=== PATIENT | male | born 1955 | race Caucasian/White ===

== ENCOUNTER 2017-02-22 00:47 | Emergency (ER) | payer MEDICAID, MEDICARE ==
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
[2017-02-22 01:01] VITALS: BP 125/73
== END 2017-02-22 02:52 | disposition home or self-care (01) ==
LOC: ED 00:47
DX: S80.212A Abrasion, left knee, initial encounter (principal); Y09 Assault by unspecified means; Y93.9 Activity, unspecified; Y92.9 Unspecified place or not applicable
CPT/HCPCS: 99282

== ENCOUNTER 2018-05-20 13:30 | Emergency (ER) | payer MEDICAID, MEDICARE ==
[2018-05-20 14:33] VITALS: BP 131/86
--- NOTE | 2018-05-20 19:26 | UC ---
Skin Complaint HPI - HPI Summary HPI Summary: 1. SKIN RASH ON BOTH ARMS , RIGHT FOOT X 3 WEEKS, CONCERN ABOUT FUNGAL INFECTION + ITCHY , NO DISCHARGE 2. SWELLING LEFT INGUINAL AREA, MILD TENDERNESS, NO N/V/D/C , NO DYSURIA HAS HAD THE SWELLING FOR ABUT A YEAR, MILD TENDERNESS, INCREASE IN SIZE WITH WALKING, OR COUGHING , 3. MILD CHEST DISCOMFORT , NO DIAPHORESIS , NO SOB , NO COUGH , HAS HAD THE PAIN OFF AND ON FOR FEW WEEKS + INDIGESTION , UPSET STOMACH, NOT BETTER OR WORSE WITH EXERTION - History of Current Complaint Chief Complaint: UCGeneralIllness Time Seen by Provider: 05/20/18 14:02 Stated Complaint: SKIN COMPLAINT Hx Obtained From: Patient Onset/Duration: Gradual Onset, Lasting Weeks - 3, Still Present Timing: Constant Onset Severity: Mild Current Severity: Mild Pain Intensity: 0 Pain Scale Used: 0-10 Numeric Location: Hand (Left), Foot (Left) Character: Pruritus, Redness Aggravating Factor(s): Nothing Alleviating Factor(s): Nothing Associated Signs & Symptoms: Positive: Rash. Negative: Nausea, Vomiting, Numbness, Thirst, Diaphoresis, Weakness, Pallor, Shivering, Fever, Chills, Cough , Wheezing, Chest Pain, Hoarseness, Throat Tightening - Allergy/Home Medications Allergies/Adverse Reactions: Allergies Allergy/AdvReac Type Severity Reaction Status Date / Time mold Allergy Unknown Verified 05/20/18 14:36 Reaction Details sulfamoxole Allergy Unknown Verified 05/20/18 14:34 Reaction Details trimethoprim Allergy Unknown Verified 05/20/18 14:34 Reaction Details dust Allergy Unknown Uncoded 05/20/18 14:36 Reaction Details Home Medications: Home Medications Cholecalciferol (Vitamin D3) [Vitamin D3] 4,000 unit PO DAILY 05/20/18 [History Confirmed 05/20/18] Cyanocobalamin (Vitamin B-12) [Vitamin B-12] 1 tab PO DAILY 05/20/18 [History Confirmed 05/20/18] Magnesium 1 tab PO DAILY 05/20/18 [History Confirmed 05/20/18] Multivitamin/Iron/Folic Acid [Centrum Adults Tablet] 1 tab PO DAILY 05/20/18 [ History Confirmed 05/20/18] Potassium 1 tab PO DAILY 05/20/18 [History Confirmed 05/20/18] Vitamin B Complex CAP* [B Complex CAP*] 1 tab PO DAILY 05/20/18 [History Confirmed 05/20/18] Review of Systems Constitutional: Negative Skin: Rash Eyes: Negative ENT: Negative Respiratory: Negative Cardiovascular: Chest Pain Gastrointestinal: Negative Genitourinary: Negative Is Patient Immunocompromised?: No All Other Systems Reviewed And Are Negative: Yes PMH/Surg Hx/FS Hx/Imm Hx - Additional Past Medical History Additional PMH: ESOPHAGEAL CANCER Respiratory History: Asthma Psychological History: Anxiety - Surgical History Surgical History: Yes Surgery Procedure, Year, and Place: partial esophagectomy - Family History Known Family History: Negative: Blood Disorder - Social History Alcohol Use: None Substance Use Type: None Smoking Status (MU): Never Smoked Tobacco Physical Exam Triage Information Reviewed: Yes Appearance: Well-Appearing, No Pain Distress, Well-Nourished Vital Signs: Initial Vital Signs Temp 97.6 F 05/20/18 14:02 Pulse 93 05/20/18 14:02 Resp 18 05/20/18 14:02 BP 131/86 05/20/18 14:02 Pulse Ox 97 05/20/18 14:02 Vital Signs Reviewed: Yes Eyes: Positive: Conjunctiva Clear ENT: Positive: Normal ENT inspection, Hearing grossly normal, Pharynx normal Neck: Positive: Supple, Nontender, No Lymphadenopathy Respiratory: Positive: Chest non-tender, Lungs clear, Normal breath sounds Cardiovascular: Positive: RRR, No Murmur, Pulses Normal Abdomen Description: Positive: Nontender, Soft, Hernia @ - LEFT INGUINAL HERNIA. Negative: CVA Tenderness (R), CVA Tenderness (L), Distended, Guarding Bowel Sounds: Positive: Present Musculoskeletal Exam: Normal Skin: Positive: rashes - MACULAR RASH, MILD ERYTHEMA, Diagnostics - EKG Cardiac Rate: NL Cardiac Rhythm: Sinus: Normal Ectopy: None ST Segment: Normal Course/Dx - Diagnoses Provider Diagnoses: 1. TINEA CORPORIS. 2. INGUINAL HERNIA. 3. ATYPICAL CHEST PAIN Discharge - Sign-Out/Discharge Documenting (check all that apply): Patient Departure All imaging exams completed and their final reports reviewed: No Studies - Discharge Plan Condition: Stable Disposition: HOME Prescriptions: Nystatin/Triamcinolone CR(NF) [Mycolog CREAM*] 1 applic TOPICAL BID #60 applic Patient Education Materials: Tinea Corporis (ED), Inguinal Hernia (ED) Referrals: Rip Lindo MD [Medical Doctor] - No Primary Care Phys,NOPCP [Primary Care Provider] - - Billing Disposition and Condition Condition: STABLE Disposition: Home
--- NOTE | 2018-05-22 15:55 | UC ---
- Progress Note Progress Note: call from pt - change Rx to Jesus from [facility] Discharge - Sign-Out/Discharge Documenting (check all that apply): Post-Discharge Follow Up All imaging exams completed and their final reports reviewed: No Studies - Discharge Plan Condition: Stable Disposition: HOME Prescriptions: Nystatin/Triamcinolone CR(NF) [Mycolog CREAM*] 1 applic TOPICAL BID #60 applic Patient Education Materials: Tinea Corporis (ED), Inguinal Hernia (ED) Referrals: Rip Lindo MD [Medical Doctor] - No Primary Care Phys,NOPCP [Primary Care Provider] - - Billing Disposition and Condition Condition: STABLE Disposition: Home
== END 2018-05-20 15:30 | disposition home or self-care (01) ==
LOC: UCEAST 13:30
DX: B35.4 Tinea corporis (principal); K40.90 Unilateral inguinal hernia, without obstruction or gangrene, not specified as recurrent; R07.89 Other chest pain; Z88.2 Allergy status to sulfonamides; Z88.3 Allergy status to other anti-infective agents
CPT/HCPCS: 93005; 99212; G0463

== ENCOUNTER 2018-08-05 07:35 | Day surgery (SDC) | payer MEDICARE, MEDICAID ==
--- NOTE | 2018-08-01 22:31 | HP ---
ADMISSION HISTORY AND PHYSICAL: DATE OF ADMISSION: 08/05/18 ATTENDING SURGEON: Dr. Rip Lindo.* (DICTATED BY RAVI ALEJANDRO) PRIMARY CARE PHYSICIAN: The patient does not have a primary care provider. CHIEF COMPLAINT: Left inguinal hernia. HISTORY OF PRESENT ILLNESS: This is a 63-year-old male who beginning in May or so noted the presence of left groin bulge that was uncomfortable. He states that this occurred after he was doing some heavy lifting. He continues to have some discomfort related to the hernia particularly with bending or more strenuous activities. He has not had anything to suggest incarceration or strangulation. He specifically denies any change in GI or function. He was seen in the office by Dr. Lindo on 06/06/18 at which time exam confirmed the presence of a reducible left inguinal hernia. No hernia was noted on the right. Dr. Lindo discussed with him the indications for surgery , the risks, benefits, and alternatives. The patient would like to proceed as scheduled with open repair of left inguinal hernia with mesh. PAST MEDICAL HISTORY: Depression and PTSD. 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 As a result, he has had chronic lower extremity edema, particularly on the left. He also has undergone prior varicose vein surgery and resection of laryngeal polyps. 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 PAST SURGICAL HISTORY: Surgeries as noted above. Also, hemorrhoidectomy in 2014. No reported surgical or anesthesia complications. CURRENT MEDICATIONS: None. DRUG ALLERGIES: SULFA (rash). FAMILY HISTORY: Mother may have had a history of phlebitis, though the patient is unsure. No other additional family history of VTE disease, anesthesia problems, or bleeding disorder. SOCIAL HISTORY: The patient lives alone. He is accompanied by his service dog. He denies use of tobacco. Stopped drinking for the most part in 2012 and denies any other recreational drug use. REVIEW OF SYSTEMS: General: No recent constitutional symptoms or acute illnesses other than described in the HPI. He is on day 30 of a solid food fast (he is drinking tea with electrolytes). He is not certain when he will end this fast and the reasons given are primarily political and socioeconomic. (The patient relates most of his medical problems to sociopolitical conditions and is otherwise a relatively poor historian). HEENT: No problems reported. Cardiovascular: No chest pain, palpitations, history of heart murmur. Respiratory: No recent shortness of breath or chronic cough. He notes that he took himself off anticoagulants that he was taking for his PE, but he has had no problems with recurrent disease. GI: No nausea, vomiting. No particular lower GI symptoms. Colonoscopy done approximately 5 years ago and normal by his report. : No problems reported. Endocrine: No diabetes or thyroid dysfunction. Neuro/Psych: He has history of depression and PTSD and has poor personal hygiene and again is somewhat untrusting of the system especially politically and sometimes medically. Remainder of review of systems is negative. PHYSICAL EXAMINATION GENERAL: Well-nourished, well-developed male, in no acute distress. VITAL SIGNS: Height 72 inches, weight 164 pounds, blood pressure 116/78, pulse 76, respirations 16. HEENT: Pupils equal and round, reactive. EOMs intact. No conjunctival pallor. Oropharynx: Teeth in fair repair. No acute problems. NECK: No lymphadenopathy, thyromegaly. No masses. There is a well-healed incision at the left side of the base of the neck from his prior esophagectomy. LUNGS: Clear to auscultation. No rales or wheezes noted. HEART: Regular rate and rhythm. No murmur appreciated. ABDOMEN: Well-healed laparoscopic incision sites. There is what feels like a suture granuloma in the subxiphoid area. There is no acute inflammation. The remainder of the abdomen is soft and nontender and without palpable masses or organomegaly with the exception of a left groin swelling, which is easily reducible and nontender and consistent with left inguinal hernia. No hernia palpable on the right. GENITALIA: Otherwise, not examined. RECTAL: Not done. BACK: No spinous process or CVA tenderness. EXTREMITIES: Lower extremities are notable for bilateral edema, which appears chronic, though I did not examine the skin itself. The patient states that changes are chronic and stable. NEUROLOGICAL: The patient is oriented, but does have some distorted thinking in terms of causation for some of his medical problems and it is difficult to keep on task for discussion regarding his upcoming surgery, but he does seem to understand the indications and implications of the surgery as well as instructions for perioperative care. SKIN: Warm and dry. No suspicious rashes or lesions noted, though I did not examine his lower extremities directly. IMPRESSION: Left inguinal hernia. PLAN: Open repair of left inguinal hernia with mesh. RAVI ALEJANDRO [id number]/[facility] #: [id number] KATRIN
[~2018-08-05 07:35] MED LIST: Buffered Lidocaine 0.9% SYRIN* 5 ML/SYR SYRINGE INTRADERM ONE; Dexamethasone IV* 4 MG/ML 1 ML (4 MG) IV SLOW PU ONE; Famotidine IV* 10 MG/ML 2 ML (20 mg) IV ONE
[2018-08-05] MEDS ORDERED: ceFAZolin 2 GM PREMIX in ORs 2 GM/50 ML BAG IVPB ONE (07:57)
[2018-08-05] MEDS ORDERED: Dexamethasone IV* 4 MG/ML 1 ML (4 MG) ONE (07:57)
[2018-08-05] MEDS ORDERED: Famotidine IV* 10 MG/ML 2 ML (20 mg) ONE (07:57)
[2018-08-05] MEDS ORDERED: Bupivacaine 0.5% W/EPI SDV* 30 ML VIAL ONE ×2 (08:57→11:16)
[2018-08-05] MEDS ORDERED: Lidocaine 1% INJ* 10 MG/ML 30 ML SDV ONE ×2 (08:57→11:16)
[2018-08-05 09:15] LABS: ABS Basophils 0 10^3/ul (0-0.2); ABS Eosinophils 0 10^3/ul (0-0.6); ABS Lymphocytes 1.2 10^3/ul (1.0-4.8); ABS Monocytes 0.4 10^3/ul (0-0.8); ABS Neutrophils 1.7 10^3/ul (1.5-7.7); ABS Nucleated RBC 0 10^3/ul; Eosinophil % 0.9 %; Hematocrit 38 % (42-52); Hemoglobin 13.2 g/dl (14.0-18.0); Lymphocyte % 36.2 %; Mean Corpuscular HGB Conc 35 g/dl (31-36); Mean Corpuscular Hemoglobin 32 pg (27-31); Mean Corpuscular Volume 91 fL (80-94); Mean Platelet Volume 9.6 fL (7.4-10.4); Nucleated Red Blood Cells % 0.1; Platelet Count 153 10^3/ul (150-450); Red Blood Count 4.17 10^6/ul (4.00-5.40); Red Cell Distribution Width 13 % (10.5-15); White Blood Count 3.3 10^3/ul (3.5-10.8)
[2018-08-05 09:21] LABS: EGFR Non-African American 100.5 (>60)
[2018-08-05] MEDS ORDERED: Remifentanil* 2 MG VIAL ONE (10:36)
[2018-08-05] MEDS ORDERED: fentaNYL* 50 MCG/ML 2 ML VIAL (100 MCG VIAL) ONE (11:00)
[2018-08-05] MEDS ORDERED: Midazolam* 1 MG/ML 2 ML VIAL (2 MG) ONE (11:00)
[2018-08-05] MEDS ORDERED: Acetaminop/Codeine 30 MG TAB* 1 TAB (300 MG/30 MG) PO PRN (12:35)
--- NOTE | 2018-08-05 12:39 | BRIEFOPN ---
Brief Operative Note - Surgery Procedures: PRE/POSTOP DX: LIH PROC: OPEN LIHR WITH MESH SURG: MECENAS ASSIST: ANES: LOCAL/MAC; [facility] EBL: MIN IVF: CRYSTALLOID SPEC: NONE DRAIN: NONE COMPL: NONE COND: STABLE; TO RR. FINDING: INDIRECT LIH
[2018-08-05] MEDS ORDERED: Naloxone* 0.4 MG/ML 1 ML VIAL IV PRN (12:43)
[2018-08-05] MEDS ORDERED: Propofol* 10 MG/ML 20 ML BTL ONE ×2 (13:05→13:57)
[2018-08-05 13:23] VITALS: BP 122/76
--- NOTE | 2018-08-08 07:57 | OP ---
DATE OF OPERATION: 08/05/18 - [facility] DATE OF : 55 SURGEON: Rip Lindo MD CORE DROPPER: RAVI Enamorado student. ANESTHESIOLOGIST: Dr. Morales. ANESTHESIA: Local MAC. PRE-OP DIAGNOSIS: Left inguinal hernia. POST-OP DIAGNOSIS: Left inguinal hernia. OPERATIVE PROCEDURE: Open repair of left inguinal hernia with mesh. ESTIMATED BLOOD LOSS: Minimal. IV FLUIDS: Crystalloid. SPECIMEN: None. DRAINS: None. COMPLICATIONS: None. COUNT: The instrument, needle, and sponge counts were correct. DESCRIPTION OF PROCEDURE: The patient was brought to the operating room and placed on the table supine. Sequential compression devices were placed on both lower extremities. Intravenous sedation was administered. His left groin was prepped and draped in the usual sterile fashion. He received appropriate intravenous antibiotics. Time-out was performed. Local anesthetic was infiltrated into the skin and soft tissue in the left groin as a field block. An oblique incision was created approximately 5 cm long. The subcutaneous tissues were divided with cautery and crossing veins were divided between clamps and ligated with absorbable ties. The external oblique aponeurosis was then identified. An additional anesthetic was infiltrated beneath this and then the aponeurosis was opened along the line of its fibers through the superficial ring. Inspection revealed the ilioinguinal nerve to be well visualized and this was mobilized and maintained medially to protect it. The contents of the inguinal canal were then isolated with a Grabill drain. The patient was noted to have an indirect inguinal hernia. The sac was elevated. Cord structures were dissected free and preserved. The sac was opened identifying a small sliding component of fat. The sac was pursestring closed and dissected back beyond the deep ring. The repair was then performed with the Medtronic ProGrip mesh for left- sided inguinal hernia. Mesh was positioned with overlap of the pubic tubercle and the mesh was minimally trimmed in the lateral aspect. The cord was positioned through the pre-cut defect and the hernia mesh was closed. The coverage was excellent. The ilioinguinal nerve was returned to the anatomic position and then the external oblique aponeurosis was run close with 2-0 Vicryl suture. 3-0 Vicryl was used to close Bradly's fascia in interrupted fashion. Skin was closed with 4-0 Monocryl in subcuticular fashion. Steri-Strips were applied. Dressing was applied. The patient tolerated the procedure well, was extubated uneventfully and he was transferred to the recovery room in stable condition. [id number]/[facility] #: [id number] KATRIN
== END 2018-08-05 13:28 | disposition home or self-care (01) ==
LOC: OR 07:35
PROVIDERS: ATTEND Surgery
DX: K40.90 Unilateral inguinal hernia, without obstruction or gangrene, not specified as recurrent (principal); F43.10 Post-traumatic stress disorder, unspecified; F32.9 Major depressive disorder, single episode, unspecified
CPT/HCPCS: 36415; 80053; 85025; J0690; J1100; J2250; J2704; J3010

== ENCOUNTER 2019-02-17 17:15 | Emergency (ER) | payer MEDICAID, MEDICARE ==
[2019-02-17 20:00] VITALS: BP 122/87
--- NOTE | 2019-02-17 20:02 | UC ---
UC General HPI - HPI Summary HPI Summary: Pt presents to urgent for evaluation of several concerns. PT has a complex medical history including esophageal cancer for which he had surgery, arthritis , leg edema and cardiac disease. Patient does not currently have a PCP. Patient here today because he states that his arthritis is getting worse. Patient also states he swelling in his legs have gotten worse but is concerned because the left is more swollen than the right. Patient does have a remote history of blood clots. Patient denies chest pain or shortness of breath. Patient denies headache or vision changes. No abdominal pain. No nausea vomiting. Patient states his living situation is slightly to stabilizing feels this is contributing to his overall health picture. Patient has a service are coming him at today's visit. Medications reviewed - History of Current Complaint Chief Complaint: UCGI Stated Complaint: HERNIA,ACID REFLUX,SOB,DEHYDRATED Time Seen by Provider: 02/17/19 18:34 Hx Obtained From: Patient, Medical Records Onset/Duration: Gradual Onset, Resolved Onset Severity: Mild Current Severity: Mild Pain Intensity: 2 - Allergy/Home Medications Allergies/Adverse Reactions: Allergies Allergy/AdvReac Type Severity Reaction Status Date / Time mold Allergy Unknown Verified 02/17/19 17:57 Reaction Details Sulfa (Sulfonamide Allergy Hives Verified 02/17/19 17:57 Antibiotics) trimethoprim Allergy Unknown Verified 02/17/19 17:57 Reaction Details dust Allergy Unknown Uncoded 02/17/19 17:57 Reaction Details Home Medications: Home Medications NK [No Home Medications Reported] 02/17/19 [History Confirmed 02/17/19] PMH/Surg Hx/FS Hx/Imm Hx Previously Healthy: Yes Cardiovascular History: Cardiac Disease, Hypertension GI/ History: Gastroesophageal Reflux, Other - hernia Cancer History: Other - esophageal - Surgical History Surgical History: Yes Surgery Procedure, Year, and Place: partial esophagectomy. varicose vein surgery x3. hemorrhoid removal 2015. inguinal hernia repair 2018 - Family History Known Family History: Negative: Blood Disorder - Social History Alcohol Use: Rare Substance Use Type: None Smoking Status (MU): Never Smoked Tobacco Review of Systems All Other Systems Reviewed And Are Negative: Yes Constitutional: Positive: Negative Skin: Positive: Negative Eyes: Positive: Negative ENT: Positive: Negative Respiratory: Positive: Negative Cardiovascular: Positive: Other - leg edema Gastrointestinal: Positive: Negative Genitourinary: Positive: Negative Motor: Positive: Other - arthalgia Neurological: Positive: Weakness, Paresthesia Physical Exam - Summary Physical Exam Summary: Vital Signs Reviewed: Yes A+Ox3, no distress, [place] full, easy sentences Eyes: Conjunctiva Clear, ANASTASIYA. EOM intact and full ENT: Hearing grossly normal TM x 2 clear, mmoist, uvula midline, no exudate, no erythema Neck: Positive: Supple Respiratory: Positive: No respiratory distress, No accessory muscle use + CTA throughout no w/r Cardiovascular: RRR nl s1, s2 no m/r CBT <2 sec + 1+ edema b/l LE left slight discomfort calf feet warm CBT < 2 seec abd soft + BS nt/nd no guarding, no distension Musculoskeletal Exam: YA x 4 without difficulty Strength Intact, ROM Intact Neurological: Positive: Alert, + sensation throughout Psychological: Positive: Normal Response To Family Skin: Positive: no rash, no ecchymosis, pt had a tick on left leg when took off pants for examination - tick fell off - no apparent retained part under magnification Triage Information Reviewed: Yes Vital Signs: Initial Vital Signs Temp 100.0 F 02/17/19 17:35 Pulse 81 02/17/19 17:35 Resp 18 02/17/19 17:35 BP 137/86 02/17/19 17:35 Pulse Ox 98 02/17/19 17:35 Diagnostics - Radiology No standard instances Radiology Interpretation Completed By: Radiologist - Patient Name: TIANNA BONNER Medical Record#: [id number] Ordering Physician: Betsy Castillo MD Acct.#: [id number] : 1955 Age: 64 Sex: M Location: [facility] Exam Date: 02/17/191914 ADM Status: REG ER Order Information: VL LOWER EXT VEINS LEFT Accession Number: [id number] CPT: 13571 EXAM: US Duplex Left Lower Extremity Veins , Limited EXAM DATE/TIME: 02/17/2019 7:52 PM CLINICAL HISTORY: 64 years old, male; Edema, localized; Lower extremity, left; Additional info: Lle edema , discomfort TECHNIQUE: Imaging protocol: Real-time Duplex ultrasound of the Left Lower Extremity with 2-D chow scale, color Doppler flow and spectral waveform analysis. Limited exam focused on the left lower extremity veins. COMPARISON: No relevant prior studies available. FINDINGS: Left deep veins : Unremarkable. The common femoral, femoral, proximal profunda femoral and popliteal veins are patent without thrombus. Normal Doppler waveforms. Normal compressibility and/or augmentation response. Left superficial veins: Unremarkable. Saphenofemoral junction is patent without thrombus. Soft tissues: Unremarkable. IMPRESSION: No acute findings. No evidence of deep vein thrombosis. To contact [facility] with a general question: [facility] - [phone] For direct physician to physician contact: Physician Hotline - [phone] [facility] ([facility] Facility ID #[id number]) <Electronically signed by Blaine Chaudhry MD in OV> 02/17/192014 Dictated By: Blaine Chaudhry MD Dictated Date /Time: 02/17/192014 Transcribed Date/Time: Copy to: This report is only to be considered final once signed by the Provider(s) as displayed in the "<Electronically Signed by >" field (s). Absence of a signature indicates the report is in a draft status and still needs to be finalized. In the event this document was created by someone other than the signing Provider, the individual initiating the document will be listed in the "Entered by:" or "Dictated by:" longoria. 1 of 2 Course/Dx - Course Course Of Treatment: Patient with complex medical history no PCP. Patient here because he states his arthritis is little worse, his legs are more swollen is got some tenderness in his left calf. Patient concerned about DVT. Patient also noted a tick on his left leg and fell off here urgent care. Vital signs are stable. On exam patient does have edema in his bilateral lower extremity. Patient with mild discomfort. Low suspicion for DVT the patient with history of similar symptoms we'll check an x-ray. Discussed with patient limitations urgent care. We'll draw a CBC and chemistry. Strongly recommend patient follow up with Physician referral center and the [facility]., Patient initially reluctant as he states he plans to [facility] but explained patient's complete medical history and is limitations urgent care. After discussion patient and agree with the plan. Patient given contact information for both the clinic as well as physician referral center. I also left a message for the physician referral center. We'll follow up with ultrasound and reassess. Patient comfortable in agreement with plan. I d/w pt regarding prophylaxis doxy for lyme given tick bite - tick was not engorged, pt states was not present - reviewed CDC recommendation - lang not prophylac today - Diagnoses Provider Diagnosis: Leg edema Discharge - Sign-Out/Discharge Documenting (check all that apply): Patient Departure All imaging exams completed and their final reports reviewed: Yes - Discharge Plan Condition: Stable Disposition: HOME Patient Education Materials: Leg Edema (ED), Musculoskeletal Pain (ED) Referrals: [facility] [Outside] [facility] [Outside] No Primary Care Phys,NOPCP [Primary Care Provider] - Additional Instructions: - You should expect a call tomorrow from the physician referral service, Venita Escalera. She will assist you in establishing with a primary care provider [facility] - Your blood work results will take 1-2 days to come back- the [facility] will be able to review the results - It is important that you position yourself for comfort - elevate your legs and sit slightly upright - it is important for your leg swelling and swallowing condition. This is important for consistency. It is also very important to stay well hydrated - If you have uncontrolled pain, shortness of breath, chest pain or any other concerns it is recommended you go directly to the emergency department for further treatment and evaluation - Billing Disposition and Condition Condition: STABLE Disposition: Home
[2019-02-18 11:16] LABS: ABS Basophils 0.1 10^3/ul (0-0.2); ABS Lymphocytes 2.2 10^3/ul (1.0-4.8); ABS Monocytes 0.5 10^3/ul (0-0.8); ABS Neutrophils 4.7 10^3/ul (1.5-7.7); Eosinophil % 0.4 %; Hematocrit 43 % (42-52); Hemoglobin 14.7 g/dL (14.0-18.0); Lymphocyte % 28.8 %; Mean Corpuscular HGB Conc 34 g/dL (31-36); Mean Corpuscular Hemoglobin 32 pg (27-31); Mean Corpuscular Volume 94 fL (80-94); Mean Platelet Volume 9.5 fL (7.4-10.4); Nucleated Red Blood Cells % 0.1; Platelet Count 230 10^3/uL (150-450); Red Blood Count 4.57 10^6 /uL (4.18-5.48); Red Cell Distribution Width 13 % (10-15); White Blood Count 7.5 10^3/uL (3.5-10.8)
[2019-02-18 11:45] LABS: Albumin 4.2 g/dL (3.2-5.2); Albumin/Globulin Ratio 1.6 (1-3); BUN/Creatinine Ratio 20.9 (8-20); Calcium 9.8 mg/dL (8.6-10.3); EGFR African American 108.3 (>60); EGFR Non-African American 89.5 (>60); Globulin 2.6 g/dL (2-4); Potassium 4.1 mmol/L (3.5-5.0); Total Bilirubin 0.7 mg/dL (0.2-1.0); Total Protein 6.8 g/dL (6.4-8.9)
== END 2019-02-17 20:41 | disposition home or self-care (01) ==
LOC: UCEAST 17:15
DX: R60.0 Localized edema (principal); Z85.01 Personal history of malignant neoplasm of esophagus; Z88.2 Allergy status to sulfonamides; Z88.8 Allergy status to other drugs, medicaments and biological substances
CPT/HCPCS: 36415; 80053; 81003; 85025; 99211; G0463

== ENCOUNTER 2019-03-17 11:44 | Emergency (ER) | payer MEDICARE, MEDICAID ==
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
[2019-03-17 13:32] LABS: ABS Basophils 0.1 10^3/ul (0-0.2); ABS Lymphocytes 1.5 10^3/ul (1.0-4.8); ABS Monocytes 0.5 10^3/ul (0-0.8); Eosinophil % 0.3 %; Hematocrit 46 % (42-52); Hemoglobin 15.8 g/dL (14.0-18.0); Lymphocyte % 25.1 %; Mean Corpuscular HGB Conc 34 g/dL (31-36); Mean Corpuscular Hemoglobin 32 pg (27-31); Mean Corpuscular Volume 94 fL (80-94); Mean Platelet Volume 8.5 fL (7.4-10.4); Nucleated Red Blood Cells % 0.1; Platelet Count 230 10^3/uL (150-450); Red Blood Count 4.86 10^6 /uL (4.18-5.48); Red Cell Distribution Width 13 % (10-15); White Blood Count 6.1 10^3/uL (3.5-10.8)
[2019-03-17 13:47] LABS: ALT 28 U/L (7-52); AST 22 U/L (13-39); Albumin 4.4 g/dL (3.2-5.2); Albumin/Globulin Ratio 1.4 (1-3); Alkaline Phosphatase 63 U/L (34-104); Anion Gap 8 mmol/L (2-11); BUN/Creatinine Ratio 38.2 (8-20); Blood Urea Nitrogen 34 mg/dL (6-24); CO2 Carbon Dioxide 30 mmol/L (22-32); Calcium 10.6 mg/dL (8.6-10.3); Chloride 104 mmol/L (101-111); EGFR African American 104.1 (>60); EGFR Non-African American 86.1 (>60); Globulin 3.1 g/dL (2-4); Glucose 95 mg/dL (70-100); Potassium 3.8 mmol/L (3.5-5.0); Sodium 142 mmol/L (135-145); Total Protein 7.5 g/dL (6.4-8.9)
[2019-03-17 14:04] LABS: Acetaminophen < 15 mcg/mL; Alcohol < 10 mg/dL (<10); Salicylate < 2.50 mg/dL (<30)
[2019-03-17 14:11] LABS: TSH (Thyroid Stimulating Horm) 1.72 mcIU/mL (0.34-5.60)
[2019-03-17 15:16] VITALS: BP 0/0
== END 2019-03-17 15:15 | disposition home or self-care (01) ==
LOC: ED 11:44
DX: S60.211A Contusion of right wrist, initial encounter (principal); F22 Delusional disorders; X58.XXXA Exposure to other specified factors, initial encounter; Y92.9 Unspecified place or not applicable; Z88.3 Allergy status to other anti-infective agents; Z88.2 Allergy status to sulfonamides; I73.9 Peripheral vascular disease, unspecified; F41.9 Anxiety disorder, unspecified; F43.10 Post-traumatic stress disorder, unspecified; F32.9 Major depressive disorder, single episode, unspecified; M19.031 Primary osteoarthritis, right wrist
CPT/HCPCS: 36415; 80053; 80320; 80329; 84443; 85025; 99284; G0480

== ENCOUNTER 2019-03-21 17:31 | Emergency (ER) | payer MEDICARE, MEDICAID ==
[2019-03-21 17:55] VITALS: BP 113/76
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
== END 2019-03-21 19:40 | disposition home health service (06) ==
LOC: UCEAST 17:31
DX: R22.42 Localized swelling, mass and lump, left lower limb (principal); Z59.0 Homelessness; Z86.711 Personal history of pulmonary embolism; Z85.01 Personal history of malignant neoplasm of esophagus; Z88.2 Allergy status to sulfonamides
CPT/HCPCS: 99202; G0463

== ENCOUNTER 2019-03-21 20:27 | Emergency (ER) | payer MEDICARE, MEDICAID ==
--- NOTE | 2019-03-21 22:24 | ED ---
Lower Extremity - HPI Summary HPI Summary: Patient is a 64 y/o M presenting to ED with complaints of LLE edema, erythema and pain as well as mid back pain since 12/2018. He claims that he has been put out of his house "illegally" and has been out on the street for the past four days. Patient states that LLE erythema, edema, and warmness have worsened recently. Patient was evaluated at [facility] and was advised to come to ED for further workup. He reports Hx of cellulitis at left leg, sepsis, DVT, PE. He does not take medications for these issues. On triage, pain is rated 8/10, nothing is noted to aggravate/alleviate Sx. Home medications and allergies are reviewed. - History of Current Complaint Chief Complaint: EDExtremityLower Stated Complaint: BLOOD CLOT LT LEG PER PT Time Seen by Provider: 03/21/19 22:06 Hx Obtained From: Patient Onset of Pain: Days - Sx worse over past few days, Prior to Arrival Onset/Duration: Still Present - Sx worse over past few days Severity Initially: Moderate Severity Currently: Severe Pain Intensity: 8 Pain Scale Used: 0-10 Numeric Timing: Constant, Lasting Days - Sx worse over past few days, Lasting Weeks - Sx present since 12/2018 Location: Is Discrete @ - LLE, mid back pain Associated Signs And Symptoms: Positive: Swelling - LLE, Redness - LLE, Other - mid back pain, LLE pain Aggravating Factor(s): Nothing Alleviating Factor(s): Nothing - Allergies/Home Medications Allergies/Adverse Reactions: Allergies Allergy/AdvReac Type Severity Reaction Status Date / Time mold Allergy Unknown Verified 03/21/19 20:37 Reaction Details Sulfa (Sulfonamide Allergy Hives Verified 03/21/19 20:37 Antibiotics) trimethoprim Allergy Unknown Verified 03/21/19 20:37 Reaction Details dust Allergy Unknown Uncoded 03/21/19 20:37 Reaction Details PMH/Surg Hx/FS Hx/Imm Hx Cardiovascular History: Reports: Hx Peripheral Vascular Disease - DVT- 04/2011, varicose veins in legs, Hx Rheumatic Fever - myahave as a child, not sure Denies: Other Cardiovascular Problems/Disorders Respiratory History: Reports: Hx Asthma - childhood, Hx Pulmonary Embolism - PE- 04/2011 Denies: Other Respiratory Problems/Disorders GI History: Reports: Hx Hiatal Hernia - history of, prior to surgery, Other GI Disorders - esophageal [id number]/2013 History: Denies: Other Problems/Disorders Musculoskeletal History: Reports: Other Musculoskeletal History - Left inguinal hernia Denies: Hx Arthritis Sensory History: Reports: Hx Contacts or Glasses - Bifocals Denies: Hx Hearing Aid Opthamlomology History: Reports: Hx Contacts or Glasses - Bifocals Neurological History: Denies: Other Neuro Impairments/Disorders Psychiatric History: Reports: Hx Anxiety - Post traumatic stress disorder, Hx Depression Denies: Hx of Violent Episodes Against Others - Cancer History Cancer Type, Location and Year: esphogeal Hx Chemotherapy: No - Surgical History Surgery Procedure, Year, and Place: partial esophagectomy. varicose vein surgery x3. hemorrhoid removal 2015. inguinal hernia repair 2018 Hx Anesthesia Reactions: No Infectious Disease History: No Infectious Disease History: Denies: Traveled Outside the [place] in Last 30 Days - Family History Known Family History: Negative: Blood Disorder - Social History Alcohol Use: None Substance Use Type: Reports: None Smoking Status (MU): Never Smoked Tobacco Review of Systems Musculoskeletal: Other - positive - LLE pain, mid back pain Positive: Edema - LLE Skin: Other - positive - LLE erythema All Other Systems Reviewed And Are Negative: Yes Physical Exam - Summary Physical Exam Summary: VITAL SIGNS: Reviewed. GENERAL: Patient is a well-developed and nourished male who is lying comfortable in the stretcher. Patient is not in any acute respiratory distress. HEAD AND FACE: No signs of trauma. No ecchymosis, hematomas or skull depressions. No sinus tenderness. EYES: PERRLA, EOMI x 2, No injected conjunctiva, no nystagmus. EARS: Hearing grossly intact. Ear canals and tympanic membranes are within normal limits. MOUTH: Oropharynx within normal limits. NECK: Supple, trachea is midline, no adenopathy, no JVD, no carotid bruit, no c- spine tenderness, neck with full ROM CHEST: Symmetric, no tenderness at palpation LUNGS: Clear to auscultation bilaterally. No wheezing or crackles. CVS: Regular rate and rhythm, S1 and S2 present, no murmurs or gallops appreciated. ABDOMEN: Soft, non-tender. No signs of distention. No rebound no guarding, and no masses palpated. Bowel sounds are normal. EXTREMITIES: FROM in all major joints, no cyanosis or clubbing. LLE edema. NEURO: Alert and oriented x 3. No acute neurological deficits. Speech is normal and follows commands. SKIN: Dry and warm Triage Information Reviewed: Yes Vital Signs On Initial Exam: Initial Vitals Temp Pulse Resp BP Pulse Ox 99.2 F 85 16 112/69 95 03/21/19 20:30 03/21/19 20:30 03/21/19 20:30 03/21/19 20:30 03/21/19 20:30 Vital Signs Reviewed: Yes Diagnostics - Vital Signs Vital Signs Temp Pulse Resp BP Pulse Ox 03/21/19 20:30 99.2 F 85 16 112/69 95 - Laboratory Lab Statement: Any lab studies that have been ordered have been reviewed, and results considered in the medical decision making process. - Ultrasound VENOUS DOPPLER STUDY OF RLE Ultrasound Interpretation Completed By: Radiologist Summary of Ultrasound Findings: VENOUS DOPPLER STUDY IMPRESSION: The study is POSITIVE for below-knee DVT involving one of the paired left. posterior tibial veins. No above knee thrombus. Recommend followup scan in 3-5. days to assess for proximal propagation above the knee. THIS REPORT WAS REVIEWED BY DR. CONTRERAS. Re-Evaluation - Re-Evaluation First Eval Re-Evaluation Time: 00:07 Comment: Results of US discussed with the patient. Patient will be discharged to home and follow up with PCP within three days. He was advised to get a repeated US in 1-2 weeks. Strict return precautions given. Patient agreeable with this plan. Lower Extremity Course/Dx - Course Course Of Treatment: Patient is a 64 y/o M presenting to ED with complaints of LLE edema, erythema and pain as well as mid back pain since 12/2018. Patient states that LLE erythema, edema, and warmness have worsened recently. Patient was evaluated at [facility] and was advised to come to ED for further workup. He reports Hx of cellulitis at left leg, sepsis, DVT, PE. He does not take medications for these issues. On physical exam, LLE edema is noted. VENOUS DOPPLER STUDY IMPRESSION: The study is POSITIVE for below-knee DVT involving one of the paired left. posterior tibial veins. No above knee thrombus. Recommend followup scan in 3-5. days to assess for proximal propagation above the knee. Patient was given Xarelto 10 mg PO. Results of US discussed with the patient. Patient will be discharged to home and follow up with PCP within three days. He was advised to get a repeated US in 1-2 weeks. Strict return precautions given. Patient agreeable with this plan. - Diagnoses Provider Diagnoses: Superficial vein thrombosis Discharge - Sign-Out/Discharge Documenting (check all that apply): Patient Departure - discharge Patient Received Moderate/Deep Sedation with Procedure: No - Discharge Plan Condition: Stable Disposition: HOME Prescriptions: Rivaroxaban TAB(*) [Xarelto 10 mg (*)] 10 mg PO DAILY #30 tab Patient Education Materials: Superficial Thrombophlebitis (ED) Referrals: [facility] [Outside] - 3 Days Additional Instructions: RETURN TO ED FOR ANY NEW OR WORSENING SYMPTOMS. FOLLOW UP WITH YOUR PRIMARY CARE PHYSICIAN WITHIN THREE DAYS. GET AN ULTRASOUND OF YOUR RIGHT LEG IN 1-2 WEEKS. - Attestation Statements Document Initiated by Scribe: Yes Documenting Scribe: JAVIER MITCHELL Provider For Whom Scribe is Documenting (Include Credential): JON CONTRERAS MD Scribe Attestation: I, JAVIER MITCHELL, scribed for JON CONTRERAS MD on 03/22/19 at 0218. Status of Scribe Document: Ready
[2019-03-22] MEDS ORDERED: Rivaroxaban TAB(*) 10 MG PO ONE (00:05)
[2019-03-22 01:09] VITALS: BP 127/82
== END 2019-03-22 01:07 | disposition home or self-care (01) ==
LOC: ED 20:27
DX: I82.812 Embolism and thrombosis of superficial veins of left lower extremity (principal); I73.9 Peripheral vascular disease, unspecified; J45.909 Unspecified asthma, uncomplicated; Z88.1 Allergy status to other antibiotic agents; Z88.2 Allergy status to sulfonamides; R22.42 Localized swelling, mass and lump, left lower limb; Z59.0 Homelessness; Z86.711 Personal history of pulmonary embolism; Z85.01 Personal history of malignant neoplasm of esophagus
CPT/HCPCS: 99282; A9270-GY

== ENCOUNTER 2019-11-29 20:15 | Emergency (ER) | payer MEDICARE, MEDICAID, OTHER ==
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
[2019-11-29 20:57] VITALS: BP 128/73
== END 2019-11-29 22:25 | disposition home health service (06) ==
LOC: UCEAST 20:15
DX: I82.403 Acute embolism and thrombosis of unspecified deep veins of lower extremity, bilateral (principal); R21 Rash and other nonspecific skin eruption; R09.89 Other specified symptoms and signs involving the circulatory and respiratory systems; Z20.828 Contact with and (suspected) exposure to other viral communicable diseases; Z59.0 Homelessness; Z86.718 Personal history of other venous thrombosis and embolism; Z86.711 Personal history of pulmonary embolism; Z88.1 Allergy status to other antibiotic agents; Z88.2 Allergy status to sulfonamides; Z91.09 Other allergy status, other than to drugs and biological substances
CPT/HCPCS: 87635; 99211; G0463

== ENCOUNTER 2019-11-30 11:50 | Emergency (ER) | payer MEDICARE, MEDICAID ==
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
[2019-11-30 14:44] VITALS: BP 140/94
== END 2019-11-30 16:08 | disposition home or self-care (01) ==
LOC: UCEAST 11:50
DX: R60.0 Localized edema (principal); M79.605 Pain in left leg; Z86.718 Personal history of other venous thrombosis and embolism; Z86.711 Personal history of pulmonary embolism; Z59.0 Homelessness; Z88.2 Allergy status to sulfonamides; Z88.8 Allergy status to other drugs, medicaments and biological substances; Z91.09 Other allergy status, other than to drugs and biological substances
CPT/HCPCS: 99211; G0463